=== PATIENT | female | born 1960 | race Caucasian/White ===

== ENCOUNTER 2021-08-08 14:10 | Emergency (ER) | payer BC, MEDICAID ==
[~2021-08-08] VITALS: Ht 167.6 cm; Wt 110.0 kg
[2021-08-08 16:22] VITALS: BP 169/72
== END 2021-08-08 16:23 | disposition home or self-care (01) ==
LOC: ER 14:10
DX: R09.89 Other specified symptoms and signs involving the circulatory and respiratory systems (principal); E11.9 Type 2 diabetes mellitus without complications; E78.00 Pure hypercholesterolemia, unspecified; I10 Essential (primary) hypertension
CPT/HCPCS: 99283